=== PATIENT | female | born 1965 | race Caucasian/White ===

== ENCOUNTER 2022-07-04 12:31 | Emergency (ER) | payer BC ==
[~2022-07-04] VITALS: Ht 165.1 cm; Wt 60.8 kg
[2022-07-04] MEDS ORDERED: AMOX TR-K CLV1 EAC1 PO (16:16)
== END 2022-07-04 16:40 | disposition home or self-care (01) ==
LOC: ED 12:31
DX: K11.20 Sialoadenitis, unspecified (principal)
CPT/HCPCS: 36415; 70491; 80053; 85025; 99284-25; J0295; J7040; Q9967